=== PATIENT | male | born 1985 | race Caucasian/White ===

== ENCOUNTER 2023-10-04 06:46 | Emergency (ER) | payer BC, SELFPAY ==
[2023-10-04] VITALS (17 sets, daily range): BP systolic 76–130; BP diastolic 50–89; PULSE 63–73; RESP 20–28; O2SAT 94–100; BMI 24.9
--- NOTE | 2023-10-04 07:31 | ECG_ITS ---
[facility] Test Date: 2023-10-04 Pat Name: RUFUS FLORENTION Department: Room: - Gender: Male Rn Liaison: : 1985 Requested By: [id number] Order Number: [id number] Reading MD: BRITNEY ZIMMER Measurements Intervals [place] Rate: 67 P: 44 IN: 146 QRS: 52 QRSD: 88 T: 28 QT: 392 QTc: 407 Interpretive Statements 1100 Sinus rhythm 9110 normal ECG No previous ECG available for comparison Electronically Signed On 10-07-2023 6:22:22 EST by BRITNEY ZIMMER
--- NOTE | 2023-10-04 07:33 | ED_ITS ---
HPI - Back Pain/Injury General Chief Complaint: Back Pain/Injury Stated Complaint: BACK PAIN Time Seen by Provider: 10/04/23 07:07 Source: patient Mode of arrival: walk-in History of Present Illness HPI Narrative: 37-year-old male presents for upper back pain. He's had a little bit of pain over the past week but it got much worse about 4:00 this morning and he just couldn't get comfortable. He reports that the only way to get somewhat c omfortable was to sit on the edge of the chair and leaning all the way forward. There has been no trauma or unusual activity. The pain seems to be wrapping around towards the front bilaterally. No cough or complaints of shortness of breath. He has no history of aneurysm or pulmonary embolism. The pain was severe and now it is somewhat better. No lower back pain. Related Data Previous Rx's Medication Instructions Recorded cyclobenzaprine 10 mg tablet 10 mg PO TID PRN muscle spasm #20 10/04/23 tabs hydrocodone 5 mg-acetaminophen 325 1 tab PO Q6H PRN pain 5 days #20 10/04/23 mg tablet tabs ibuprofen 800 mg tablet 800 mg PO Q8H PRN pain #20 tabs 10/04/23 Allergies Allergy/AdvReac Type Severity Reaction Status Date / Time nalbuphine [From Nubain] AdvReac Severe Nausea Verified 10/04/23 06:57 Review of Systems ROS Narrative A ten point review of systems is negative except as noted above. Exam Narrative Exam Narrative: Nurses note and vital signs reviewed and patient is not hypoxic. General: The patient is standing in the room and appears somewhat uncomforta ble. Skin: Warm, dry, no pallor noted. There is no rash noted. Head: Normocephalic, atraumatic Eye: Normal conjunctiva, no drainage Ears, Nose, Mouth, and Throat: oral mucosa is moist. Nares patent. Cardiovascular: Regular Rate and Rhythm Respiratory: Patient is in no distress, no accessory muscle use, lungs are clear to auscultation, no wheezing, rales or rhonchi Back: non-tender GI: soft and nontender Musculoskeletal: The patient has no evidence of calf tenderness, no pitting edema, symmetrical pulses noted bilaterally. his back is no bruise rash or abrasion or palpable tenderness. Neurological: A&O, normal speech Psychiatric: Cooperative Constitutional Vital Signs, click to edit/add: Last Vital Signs Pulse 68 10/04/23 08:00 Resp 28 H 10/04/23 08:00 BP 103/65 10/04/23 09:30 Pulse Ox 96 10/04/23 09:30 O2 Del Method Room Air 10/04/23 06:53 Course Vital Signs Vital signs: Vital Signs Pulse Rate 73 10/04/23 06:53 Respiratory Rate 20 10/04/23 06:53 Blood Pressure 130/89 10/04/23 06:53 Pulse Oximetry 96 10/04/23 06:53 Oxygen Delivery Method Room Air 10/04/23 06:53 Pulse Rate 68 10/04/23 08:00 Respiratory Rate 28 H 10/04/23 08:00 Blood Pressure 103/65 10/04/23 09:30 Pulse Oximetry 96 10/04/23 09:30 Oxygen Delivery Method Room Air 10/04/23 06:53 MDM - Back Pain/Injury MDM Narrative Medical decision making narrative: The patient's workup including a CTA of the chest is negative. My clinical impression at this point is that he has muscle pain. He'll be treated with pain medicine and muscle relaxers. Treatment diagnosis and follow-up were discussed with the patient and his mother. Differential Diagnosis Differential diagnosis: Likely other (pneumothorax, myocardial infarction, PE, aortic dissection) Lab Data Attestation: I reviewed the patient's lab results. Labs: Lab Results 10/04/23 Range/Units 07:11 WBC 5.4 (4.0-11.0) 10^3/uL RBC 5.28 (4.70-6.10) 10^6/uL Hgb 16.0 (14.0-18.0) g/dL Hct 46.9 (42.0-54.0) % MCV 88.8 (80.0-94.0) fL MCH 30.3 (25.9-34.0) pg MCHC 34.1 (29.9-35.2) g/dL RDW 11.8 (11.0-15.0) % Plt Count 164 (150-450) 10^3/uL MPV 11.1 (9.5-13.5) fL Neut % (Auto) 51.9 (43.0-75.0) % Lymph % (Auto) 39.2 (20.5-60.0) % [place] % (Auto) 6.3 (1.7-12.0) % Eos % (Auto) 1.8 (0.9-7.0) % Baso % (Auto) 0.6 (0.2-2.0) % Neut # (Auto) 2.8 (1.4-6.5) 10^3/uL Lymph # (Auto) 2.1 (1.2-3.8) 10^3/uL [place] # (Auto) 0.3 (0.3-0.8) 10^3/uL Eos # (Auto) 0.1 (0.0-0.7) 10^3/uL Baso # (Auto) 0.0 (0.0-0.1) 10^3/uL Abs Immat Gran (auto) 0.01 (0.00-0.03) 10^3/uL Imm/Tot Granulo (auto) 0.2 (0.0-0.5) % D-Dimer <0.19 (<=0.59) mg/L FEU Sodium 138 (136-145) mmol/L Potassium 4.4 (3.5-5.1) mmol/L Chloride 104 (98-107) mmol/L Carbon Dioxide 28.9 (21.0-32.0) mmol/L Anion Gap 9.5 BUN 18.0 (7.0-18.0) mg/dL Creatinine 0.90 (0.70-1.30) mg/dL Est GFR ( Amer) >60 (>=60) Est GFR (Non-Af Amer) >60 (>=60) BUN/Creatinine Ratio 20.0 Glucose 94 (74-106) mg/dL Calcium 8.9 (8.5-10.1) mg/dL Troponin I High Sens <4.0 L (4.0-76.1) pg/mL Imaging Data chest x-ray and CTA chest: Radiologist's impression: Procedure: CT angio chest EXAMINATION: CT angio chest, 10/04/2023 8:55 AM EST HISTORY: back pain, R/O dissection COMPARISON: None. TECHNIQUE: CT angiography of the chest was performed with water soluble IV contrast. MIP (maximum intensity projection) images or 3D post processing was performed. CT dose reduction technique was used, including Automated Exposure Control. FINDINGS: The heart is normal in size. The thoracic aorta is normal in caliber. There is no evidence of aneurysm or dissection. The pulmonary arteries are well opacified without evidence of filling defects. The lung villarreal appear clear. No pneumothorax or pleural effusion is seen. There is slight bilateral hilar adenopathy, nonspecific. The osseous structures appear intact. The visualized portions of the upper abdomen appear unremarkable. IMPRESSION: No evidence of aortic aneurysm or dissection. No evidence of acute pulmonary process or pulmonary embolus. Slight bilateral hilar adenopathy. Electronically authenticated by: YEMI ARORA Date: 10/04/2023 09:29 Procedure: XR thoracic spine 2V XR thoracic spine 2V, 10/04/2023 8:00 AM EST, OH001 INDICATION: atraumatic pain COMPARISON: None TECHNIQUE: 3 images are submitted. FINDINGS: There is mild levocurvature in the lower thoracic region. The vertebral bodies demonstrate normal sagittal alignment. No acute fracture or subluxation is identified. There is no significant disc space narrowing. The visualized soft tissues appear unremarkable. IMPRESSION: No acute process identified. Electronically authenticated by: YEMI ARORA Date: 10/04/2023 08:34 Procedure: XR chest 1V TITLE: XR chest 1V COMPARISON: None. CLINICAL HISTORY: thoracic back pain TECHNIQUE: One view. FINDINGS: There is a normal cardiac and mediastinal contour. The pulmonary vascular pattern is normal. The lungs are clear and the pleural margins are sharp. There is mild scoliotic curvature of the thoracic spine IMPRESSION: NO ACUTE RADIOGRAPHIC FINDINGS Electronically authenticated by: LEANDER GARCIAS Date: 10/04/2023 ECG Data Attestation: I personally reviewed and interpreted this ECG as follows: (EKG on my interpretation shows normal sinus rhythm, no acute changes and a rate of 67.) Discharge Plan Discharge Chief Complaint: Back Pain/Injury Clinical Impression: Thoracic back pain Patient Disposition: Home, Self-Care Time of Disposition Decision: 09:36 Condition: Good Mode of Transportation: Private Vehicle Prescriptions / Home Meds: New hydrocodone-acetaminophen 5-325 mg tablet 1 tab PO Q6H PRN (Reason: pain) 5 Days Qty: 20 0RF cyclobenzaprine 10 mg tablet 10 mg PO TID PRN (Reason: muscle spasm) Qty: 20 0RF ibuprofen 800 mg tablet 800 mg PO Q8H PRN (Reason: pain) Qty: 20 0RF Instructions: Thoracic Pain (ED), Back Pain (ED) Stand Alone Forms: Portal Instructions Referrals: Physician,Non-Staff, MD [Primary Care Provider] - 1 week
[2023-10-04 07:40] LABS: Basophils Percent Auto 0.6 % (0.2-2.0); Eosinophils Absolute Auto 0.1 10^3/uL (0.0-0.7); Eosinophils Percent Auto 1.8 % (0.9-7.0); Hematocrit 46.9 % (42.0-54.0); Immature Granulocytes Abs Auto 0.01 10^3/uL (0.00-0.03); Immature Granulocytes Pct Auto 0.2 % (0.0-0.5); Lymphocytes Absolute Auto 2.1 10^3/uL (1.2-3.8); Lymphocytes Percent Auto 39.2 % (20.5-60.0); Mean Corpuscular HGB Conc 34.1 g/dL (29.9-35.2); Mean Corpuscular Hemoglobin 30.3 pg (25.9-34.0); Mean Corpuscular Volume 88.8 fL (80.0-94.0); Mean Platelet Volume 11.1 fL (9.5-13.5); Monocytes Absolute Auto 0.3 10^3/uL (0.3-0.8); Monocytes Percent Auto 6.3 % (1.7-12.0); Neutrophils Absolute Auto 2.8 10^3/uL (1.4-6.5); Neutrophils Percent Auto 51.9 % (43.0-75.0); Platelet Count 164 10^3/uL (150-450); Red Blood Count 5.28 10^6/uL (4.70-6.10); Red Cell Distribution Width 11.8 % (11.0-15.0); White Blood Count 5.4 10^3/uL (4.0-11.0)
[2023-10-04] MEDS: MORPHINE SULFATE 4 MG/ML VIAL IV (07:45)
[2023-10-04] MEDS: ONDANSETRON PF 4 MG/2 ML VIAL IV (07:52)
[2023-10-04] MEDS: 0.9 % SODIUM CHLORIDE 1,000 ML 1000 ML IV (07:52)
[2023-10-04 07:57] LABS: Anion Gap 9.5; Calcium 8.9 mg/dL (8.5-10.1); Carbon Dioxide 28.9 mmol/L (21.0-32.0); Chloride 104 mmol/L (98-107); Estimated GFR (African America >60 (>=60); Estimated GFR (Non-African Ame >60 (>=60); Glucose 94 mg/dL (74-106); Potassium 4.4 mmol/L (3.5-5.1); Sodium 138 mmol/L (136-145); Troponin I High Sensitivity <4.0 pg/mL (4.0-76.1)
--- NOTE | 2023-10-04 08:15 | XR_ITS ---
[facility] [place] [id number] Patient Name: RUFUS FLORENTINO MRN: [id number] date: 1985 Sex: M Assigned Patient Location: ER Current Patient Location: ER Accession/Order Number: [id number] Exam Date: 10/04/2023 08:00 Report Date: 10/04/2023 08:34 At the request of: AMY ROSADO Procedure: XR thoracic spine 2V XR thoracic spine 2V, 10/04/2023 8:00 AM EST, OH001 INDICATION: atraumatic pain COMPARISON: None TECHNIQUE: 3 images are submitted. FINDINGS: There is mild levocurvature in the lower thoracic region. The vertebral bodies demonstrate normal sagittal alignment. No acute fracture or subluxation is identified. There is no significant disc space narrowing. The visualized soft tissues appear unremarkable. XR/XR thoracic spine 2V IMPRESSION: No acute process identified. Electronically authenticated by: YEMI ARORA Date: 10/04/2023 08:34
--- NOTE | 2023-10-04 08:15 | XR_ITS ---
[address] [address] Patient Name: RUFUS FLORENTINO MRN: [id number] date: 1985 Sex: M Assigned Patient Location: ER Current Patient Location: ER Accession/Order Number: [id number] Exam Date: 10/04/2023 08:00 Report Date: 10/04/2023 08:36 At the request of: AMY ROSADO Procedure: XR chest 1V TITLE: XR chest 1V COMPARISON: None. CLINICAL HISTORY: thoracic back pain TECHNIQUE: One view. FINDINGS: There is a normal cardiac and mediastinal contour. The pulmonary vascular pattern is normal. The lungs are clear and the pleural margins are sharp. There is mild scoliotic curvature of the thoracic spine XR/XR chest 1V IMPRESSION: NO ACUTE RADIOGRAPHIC FINDINGS Electronically authenticated by: LEANDER GARCIAS Date: 10/04/2023 08:36
[2023-10-04 08:17] LABS: D Dimer <0.19 mg/L FEU (<=0.59)
--- NOTE | 2023-10-04 09:02 | CT_ITS ---
The [address] [address] Patient Name: RUFUS FLORENTINO MRN: [id number] date: 1985 Sex: M Assigned Patient Location: ER Current Patient Location: ER Accession/Order Number: [id number] Exam Date: 10/04/2023 08:55 Report Date: 10/04/2023 09:29 At the request of: AMY ROSADO Procedure: CT angio chest EXAMINATION: CT angio chest, 10/04/2023 8:55 AM EST HISTORY: back pain, R/O dissection COMPARISON: None. TECHNIQUE: CT angiography of the chest was performed with water soluble IV contrast. MIP (maximum intensity projection) images or 3D post processing was performed. CT dose reduction technique was used, including Automated Exposure Control. FINDINGS: The heart is normal in size. The thoracic aorta is normal in caliber. There is no evidence of aneurysm or dissection. The pulmonary arteries are well opacified without evidence of filling defects. The lung villarreal appear clear. No pneumothorax or pleural effusion is seen. There is slight bilateral hilar adenopathy, nonspecific. The osseous structures appear intact. The visualized portions of the upper abdomen appear unremarkable. CT/CT angio chest IMPRESSION: No evidence of aortic aneurysm or dissection. No evidence of acute pulmonary process or pulmonary embolus. Slight bilateral hilar adenopathy. Electronically authenticated by: YEMI ARORA Date: 10/04/2023 09:29
[2023-10-04] MEDS: ORPHENADRINE 60 MG/ 2 ML VIAL IV (09:52)
== END 2023-10-04 10:07 | disposition home or self-care (01) ==
PROVIDERS: Emergency Provider Emergency Medicine
DX: M54.6 Pain in thoracic spine (principal)
CPT/HCPCS: 36415; 71045; 71275; 72070; 80048; 84484; 85025; 85378; 93005; 96374; 96375; 99285; Q9967